=== PATIENT | male | born 1980 | race African-American/Black ===

== ENCOUNTER 2021-06-22 10:14 | Emergency (ER) | payer BC, OTHER ==
[~2021-06-22] VITALS: Ht 182.9 cm; Wt 91.8 kg
[2021-06-22] MEDS ORDERED: DIPHTH,PERTUSS(ACELL),TET TOX 0.5 ML DISP.SYRIN. VAX IM ONE (12:15)
[2021-06-22] MEDS ORDERED: LIDOCAINE 1%/EPI 1:100,000 20 ML VIAL. IJ ONE (12:15)
--- NOTE | 2021-06-22 14:15 | PHYS DOC ---
Past History Past Surgical History: No Surgical History Alcohol Use: None General Adult EDM: Chief Complaint: LACERATION/AVULSION HPI: HPI: Patient is a 40 year old male who presents with laceration to his left distal forearm. Patient states that last night around 2229 he was cutting a hole chicken. The chicken was frozen, and he defrosted in the microwave. He thought it was thought all the way through, however it was not. He states when he went to cut it the knife slipped and stabbed/cut his distal forearm near his wrist. At that time, it was bleeding significantly. He wrapped in a towel and went to sleep. He states he had considered closing the wound with "crazy glue." His significant other at bedside advised he not, so he did not. They present today because the wound is still bleeding and is now swollen. 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 He has no other complaints at this time. Review of Systems: Review of Systems: Constitutional: Denies fever, chills or generalized weakness Eyes: Denies change in visual acuity, visual field deficits or discharge HENT: Denies ear pain, nasal congestion or sore throat Respiratory: Denies cough or shortness of breath Cardiovascular: Denies chest pain, palpitations or edema GI: Denies abdominal pain, nausea, vomiting, bloody stools or diarrhea : Denies dysuria or hematuria Musculoskeletal: See HPI Integument: See HPI Neurologic: Denies headache, focal weakness or sensory changes Current Medications: Current Meds: Current Medications Medications (Trade) Dose Ordered Sig/[facility] Start Time Stop Time Status Last Admin Dose Admin Diphtheria/ Tetanus/Acell Pertussis (Boostrix) 0.5 ml ONCE ONCE 06/22/21 12:15 06/22/21 12:32 DC 06/22/21 12:42 0.5 ML Lidocaine/ Epinephrine (Xylocaine 1%-Epi 1:100,000) 20 ml 1X ONCE 06/22/21 12:15 06/22/21 12:32 DC 06/22/21 12:41 20 ML Allergies: Allergies: Allergies Coded Allergies Type Severity Reaction Last Updated Verified No Known Drug Allergies 06/22/21 No Physical Exam: PE: Constitutional: Well developed, well nourished, no acute distress, non-toxic appearance. Cardiovascular: Heart rate regular rhythm, no murmur. Lungs & Thorax: Bilateral breath sounds clear to auscultation. Skin: Incomplete avulsion 3 cm x 3 cm V-shape noted to the distal left forearm with some active bleeding and tissue protrusion, skin at the distal 2 cm of skin flap black and appears nonperfused. Skin otherwise warm, dry, no erythema, no rash. 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 Extremities otherwise no tenderness, no cyanosis, no clubbing, ROM intact, no edema, neurovascular intact. Neurologic: Alert and oriented x4, no focal deficits noted. Current Patient Data: Vital Signs: Vital Signs Date Time Temp Pulse Resp B/P (MAP) Pulse Ox O2 Delivery O2 Flow Rate FiO2 06/22/21 10:38 98.2 61 16 132/84 (100) 99 Room Air Radiology/Procedures: Radiology/Procedures: PROCEDURE: CT UPPR EXTREMTY WO CONTRST LT Exam Date: 06/22/2021 12:[address] LEFT UPPER EXTREMITY WO Indication: Reason: LAC TO WRIST / Spl. Instructions: / History: . Technique: CT scan of the left wrist was performed without intravenous contrast. One or more of the following dose reduction techniques were utilized: *Automated exposure control (AEC) *Adjustment of mA and/or kV according to patient size *Use of iterative reconstruction technique *CT scan done according to ALARA, or ALARA/IMAGE GENTLY FINDINGS: Presumed bandaging is seen along the dorsal aspect of the wrist. At the level of the carpus, there is a dorsal cutaneous and subcutaneous collection measuring 2.5 x 1.9 x 3.0 cm and 60 Hounsfield units, most likely representing a hematoma, based on the provided clinical history. There is surrounding fat stranding consistent with edema is/inflammation. Visualized extensor tendons are within normal limits. Visualized carpal tunnel and flexor tendons are normal. Osseous structures are intact. Alignment is maintained. No acute fracture. IMPRESSION: Dorsal soft tissue collection likely represents a hematoma, given the provided clinical history. Abscess or soft tissue mass could also have a similar appearance in the appropriate clinical setting. Electronically signed by: Glenn Fischer MD (06/22/2021 2:12 PM) [id number] Heart Score: C/O Chest Pain: No Course & Med Decision Making: Course & Med Decision Making Pertinent Labs and Imaging studies reviewed. (See chart for details) She is a 40-year-old male who presents with a laceration that he sustained last night cutting raw chicken. The laceration is a partial avulsion/somewhat penetrative injury. At this point I am confident that he has an extensor tendon laceration with no active wrist extension. CT images ordered of the extremity. Imaging studies shows an approximately 2.5 x 2 x 3 cm hematoma underneath the injury. Additionally, it seems that he has some arteriole bleeding. Injury is hemostatic at this point, but manipulation and exploration will likely lead to rebleed. Spoke to Dr. Medina with [facility] orthopedic surgery. He recommended a higher level of care with hand surgeon Dr. Ann. Dr. Ann not available for ER hand call at any facilities. [facility] will do ER to ER transfer of the patient for hand call along with trauma surgeon consult. Patient will be transported via EMS to [facility]. Keri Disclaimer: Keri Disclaimer: This electronic medical record was generated, in whole or in part, using a voice recognition dictation system. Departure Departure: Impression: Primary Impression: Laceration of left forearm with tendon involvement Qualified Codes: S51.812A - Laceration without foreign body of left forearm, initial encounter; S56.922A - Laceration of unspecified muscles, fascia and tendons at forearm level, left arm, initial encounter Disposition: 02 SHORT TERM HOSPITAL Condition: GUARDED Referrals: PCP,NO (PCP) XAVIER TAM Jun 22, 2021 14:15
[2021-06-22 18:09] VITALS: BP 137/91
== END 2021-06-22 18:29 | disposition short-term general hospital (02) ==
LOC: ER 10:14
DX: S56.922A Laceration of unspecified muscles, fascia and tendons at forearm level, left arm, initial encounter (principal); W26.0XXA Contact with knife, initial encounter; Y93.89 Activity, other specified; Y92.89 Other specified places as the place of occurrence of the external cause; Y99.8 Other external cause status
CPT/HCPCS: 73200; 90471; 90715; 96365; 99285; J0696